=== PATIENT | female | born 1980 | race Caucasian/White ===

== ENCOUNTER 2023-11-11 15:43 | Inpatient (IN) ==
[2023-11-11 16:23] LABS: Hematocrit (blood only) 23.7 % (37.0-47.0); Hemoglobin 7.8 g/dl (12.0-16.0); Mean Corpuscular Hemoglobin 30.5 pg (25.0-34.0); Mean Corpuscular Hgb Conc 32.9 g/dL (32.0-36.0); Mean Corpuscular Volume 92.6 fL (80.0-100.0); Mean Platelet Volume 12.2 fL (9.4-12.4); Platelet Count 5 K/uL (130-400); RDW Coefficient of Variation 13.4 % (11.5-14.5); RDW Standard Deviation 44.7 fL (36.4-46.3); Red Blood Count 2.56 M/uL (4.20-5.40); White Blood Count 10.07 K/ul (4.8-10.8)
[2023-11-11] MEDS ORDERED: SODIUM CHLORIDE 0.9% 250 ML IV PRN (16:25)
[2023-11-11 16:33] LABS: Albumin Globulin Ratio 1.2 (0.9-2); Albumin Level 3.8 gm/dl (3.4-5.0); Basophils # (auto) 0.07 K/uL (0.00-0.20); Basophils % (auto) 0.7 %; Bilirubin,Total 0.5 mg/dl (0.2-1.0); Calcium 8.9 mg/dl (8.6-10.3); Creatinine Clr Calc Pharmacy 48.5 ml/min; Eosinophils # (auto) 0.36 K/uL (0.00-0.50); Eosinophils % (auto) 3.6 %; Est GFR (Non-African American) 37.1 ml/min; Globulin 3.3 gm/dl (2.5-4.0); Immature Granulocytes # (auto) 0.06 K/uL (0.01-0.20); Immature Granulocytes % (auto) 0.6 %; Lymphocytes # (auto) 2.12 K/uL (1.20-3.40); Lymphocytes % (auto) 21.1 %; Magnesium 1.6 mg/dl (1.7-2.4); Monocytes # (auto) 0.47 K/uL (0.11-0.59); Monocytes % (auto) 4.7 %; Neutrophils # (auto) 6.99 K/uL (1.40-6.50); Neutrophils % (auto) 69.3 %; Platelet Estimate Signific. Decreased (Normal); Potassium 3.8 mmol/L (3.5-5.1); Total Protein 7.1 gm/dl (6.0-8.3)
[2023-11-11 16:42] LABS: Prothrombin Time 10.9 Seconds (9.0-12.0)
[2023-11-11] MEDS: SODIUM CHLORIDE 0.9% 500 ML IV ONE (16:57)
[2023-11-11] MEDS: MAGNESIUM SULFATE / D5W 1 GM/100 ML BAG IV SCH (16:57)
[2023-11-11] MEDS ORDERED: methylPREDNISolone 10 mg/mL (For Ped Dose < 7mg) IV STA (17:05)
[2023-11-11 17:19] LABS: Reticulocyte % 6.49 % (0.50-2.00)
[2023-11-11] MEDS: methylPREDNISolone 1,000 MG in DEXTROSE 5% 250 ML IV SCH (18:15)
--- NOTE | 2023-11-11 18:40 | History & Physical Report ---
Date of Service November 11, 2023 Assessment & Plan (1) Acute ITP: Plan: Situation seems most consistent with ITP. Possibly precipitated by preceding viral illness. No new meds preceding (is on the Medroxyprogesteronbut given her history this clearly was started after her platelets had dropped given the excess vaginal bleeding). Other than her period related bleeding, no active bleeding and she is hemodynamically stable - pulsed Solu-Medrol 1000 mg daily - IVIG - follow closely, consult hematology (2) Symptomatic anemia: Plan: due to vaginal bleeding which was precipitated by having her period with ITP hemodynamically stable, no indications for transfusion. Will type and screen to be safe. Anticipate that once the bleeding stopped hematopoiesis will correct the anemia, at the same time, check a ferritin to ensure that she has enough iron stores (and replace iron if she is low) (3) Abnormal uterine and vaginal bleeding, unspecified: Plan: seems to have been normal period bleeding heavily accentuated by thrombocytopenia. ER had ordered platelets given the bleeding, but as the patient I discussed this she would prefer to hold off on platelet transfusion, and this certainly seems reasonable given how transient platelet effect often is in ITP, as well as the fact that she is hemodynamically stable and is likely the bleeding will stop soon (seems to maybe be slightly slowing with the Medroxyprogesteronand this has just been started yesterday, and with the steroids and IVIG I anticipate her platelets to start to rise soon)obviously follow closely and should her situation worsen then we may need to reconsider, but does not appear to be necessary at this time. (4) Kidney transplant recipient: Plan: Continue her chronic immune suppressants; creatinine is identical to what we have on record from about 6 months ago (5) Hypertension: Plan: continue home medications, should her blood pressures get at all soft, obviously would hold her antihypertensives, but this is not the case at this time (6) DVT prophylaxis: Plan: ambulation (7) Discharge planning issues: Plan: admit to medical, [facility], full code, came from homeonce she has better platelet counts, anticipate discharge to home indepe ndently. History of Present Illness Chief Complaint: Sent in for abnormal labs Primary Care Provider: Geri Elder DO patient is a very pleasant 43-year-old female who had routine labs done as part of her renal transplant follow-up, she was planning on going to the [facility] this evening, and instead ended up in the ER when her transplant applied biology professor called her and told her that her platelets were 5. She notes that over the last week or so she has had a minor degree of easier bruising. She does have her period and notes that it is excessively heavy this week. She had actually called gynecology about this and yesterday started medroxyprogesterone 10 mg 3 times dailyand while it is a little bit hard to tell, thinks that maybe the bleeding is starting to slow. She also notes feeling more fatigued and maybe a mild degree of more shortness of breath with exertion in the last few dayswhich she assumed was related to period blood loss. As we discussed her situation, it also sounds like she had a fairly nasty viral gastroenteritis maybe 2 weeks ago give or take. Otherwise she is feeling well. She has no resting complaints. Does not feel dizzy/weak/lightheaded. Allergies Allergy/AdvReac Type Severity Reaction Status Date / Time oxycodone AdvReac itching Verified 04/27/23 10:06 Penicillins AdvReac swelling Verified 04/27/23 10:06 of face/lips/tongue Home Medications Medication Instructions Recorded Confirmed Type sulfamethoxazole 400 1 tab PO 3XWK 10/01/19 11/11/23 History mg-trimethoprim 80 mg tablet (Bactrim) escitalopram oxalate 10 mg tablet 10 mg PO DAILY 08/29/22 11/11/23 History (Lexapro) bisoprolol fumarate 10 mg tablet 10 mg PO DAILY #90 tabs 11/02/22 11/11/23 Rx chlorthalidone 25 mg tablet 25 mg PO DAILY #90 tabs 05/08/23 11/11/23 Rx medroxyprogesterone 10 mg tablet 10 mg PO TID 10 days #30 tabs 11/10/23 11/11/23 Rx (Provera) tacrolimus 5 mg capsule, 10 mg PO DAILY 11/11/23 11/11/23 History immediate-release Past Med/Surg History Problem List Discharge planning issues DVT prophylaxis Symptomatic anemia Acute ITP Abnormal uterine and vaginal bleeding, unspecified Loose stools Hemorrhoids GERD (gastroesophageal reflux disease) Immunosuppressed status Recurrent UTI Kidney transplant recipient Hypertension Medical History COVID ESRD (end stage renal disease) IgA nephropathy Surgical History H/O dilation and curettage x2 Peritoneal dialysis catheter fitting or adjustment Arteriovenous fistula left BC, thrombosed Family History Mother Thyroid disease Sister Thyroid disease Father Coronary heart disease Grandmother (Paternal) Breast cancer Grandfather (Paternal) Dementia Grandmother (Maternal) Lung cancer Other Hypertension Denies family history of Ovarian cancer Colorectal cancer Uterine cancer Social History Smoking Status: Never smoker Do You Dip or Chew Tobacco: No; Hx Alcohol Use: Yes Hx Substance Use: No Preferred Language: Icelandic Current Living Situation: Spouse Current Living Situation Comment: , 5 adopted children current occupational status: employed current occupation: [employer] Feels Safe at Home: Yes Review of Systems Review of Systems: All systems reviewed & are unremarkable except as noted in HPI & below Physical Exam Physical Exam: General she is awake alert oriented pleasant and in no distress. HEENT normocephalic atraumatic mucous membranes moist. Cardio is regular without rubs murmurs gallops. Lungs clear to auscultation bilaterally no rales rhonchi or wheezes good effort. Extremities are without cyanosis or clubbing. Skin shows a few scattered bruises, and a questionable petechia or 2although the patient believes these are red spots that have been there for quite a while. Neuro shows no focal deficits. Mental status intact, good judgment and insight. Results & Data Results & Data Vital Signs (Past 12 Hours) Vital Signs Temp Pulse Resp BP Pulse Ox O2 Del Method 11/11/23 17:30 130/74 11/11/23 17:30 130/74 11/11/23 17:06 58 L 14 150/81 H 97 Room Air 11/11/23 16:55 153/80 H 11/11/23 16:36 63 16 11/11/23 16:07 57 L 11/11/23 16:06 58 L 18 100 11/11/23 15:49 97.7 F 64 17 124/79 98 Room Air Code Status & VTE Plan VTE Prophylaxis Plan VTE Prophylaxis will be ordered: No Reason for no VTE drug order: Contraindicated PG Care Time/CCT Total # of Minutes Spent Total Time Spent with Patient: Total time spent is greater than 50% in coordination of care (as documented) at patient's floor/unit and/or counseling patient: Coding Level of Care Code 63122 INT INP/OBS CARE 3/75MIN Diagnoses Acute ITP D69.3 Symptomatic anemia D64.9 Abnormal uterine and vaginal bleeding, unspecified N93.9 Kidney transplant recipient Z94.0 Hypertension I10 DVT prophylaxis Z29.9 Discharge planning issues Z75.8
[2023-11-11] MEDS: Octagam 10% IVIG 10 gram bottle IV SCH (18:49)
[2023-11-11 19:06] LABS: Ferritin 54.1 ng/ml (8-388)
[2023-11-11 20:00] LABS: Adenovirus PCR Not Detected (NotDetected); Bordetella parapertussis PCR Not Detected (NotDetected); Bordetella pertussis PCR Not Detected (NotDetected); Chlamydia pneumoniae PCR Not Detected (NotDetected); Coronavirus 229E PCR Not Detected (NotDetected); Coronavirus CoV-2 (COVID19)PCR Not Detected (NotDetected); Coronavirus HKU1 PCR Not Detected (NotDetected); Coronavirus NL63 PCR Not Detected (NotDetected); Coronavirus OC43PCR Not Detected (NotDetected); Human Metapneumovirus PCR Not Detected (NotDetected); Influenza A PCR Not Detected (NotDetected); Influenza B PCR Not Detected (NotDetected); Mycoplasma pneumoniae PCR Not Detected (NotDetected); Parainfluenza Virus 1 PCR Not Detected (NotDetected); Parainfluenza Virus 2 PCR Not Detected (NotDetected); Parainfluenza Virus 3 PCR Not Detected (NotDetected); Parainfluenza Virus 4 PCR Not Detected (NotDetected); Respiratory Syncytial VirusPCR Not Detected (NotDetected); Rhinovirus/Enterovirus PCR DETECTED (NotDetected)
[2023-11-11] MEDS ORDERED: POLYETHYLENE (MIRALAX) 17 GM PACK PO PRN (21:01)
[2023-11-11] MEDS ORDERED: MAGNESIUM HYDROXIDE SUSP 30 ML UDC PO PRN (21:01)
[2023-11-11] MEDS ORDERED: ALUMINUM/MAGNESIUM SUSP 30 ML UDC PO PRN (21:01)
[2023-11-11] MEDS: Octagam 10% IVIG 20 gram bottle IV SCH (21:02)
[2023-11-11] MEDS: medroxyPROGESTERone ACETATE 10 MG TAB PO SCH (22:42)
--- NOTE | 2023-11-11 23:32 | Emergency Department Note ---
Impression & Plan Thrombocytopenia, Status post kidney transplant ED Provider Note CHIEF COMPLAINT: abnormal labs, history of kidney transplant HISTORY OF PRESENT ILLNESS: This 43-year-old female patient with history of remote renal transplant, dysfunctional uterine bleeding, GERD, hypertension presents emergency department with complaints of abnormal lab work. patient states she had routine laboratory work done through her transplant team and was notified today that she has a critical platelet count. She is not aware of the levels. She has never had this problem in the past. Patient states she has been having some increased uterine bleeding. Patient was placed on progesterone by her TEST ENGINEERING TECHNICIAN this last week. She has been feeling weak and dizzy. She denies chance of . REVIEW OF SYSTEMS: A review of systems was performed with positives and pertinent negatives listed in the history of present illness. 10 systems were reviewed and are otherwise negative. ALLERGIES: see below MEDICATIONS: see below PMH: see below SOCIAL HISTORY: see below DDx: Thrombocytopenia, medication effect, ITP, hemolysis, dysfunctional uterine bleeding, renal failure among others. PHYSICAL EXAM: Vital signs reviewed. General: Well-appearing 43-year-old female, in no significant distress. HEENT: No scleral icterus, PERRLA, neck supple. moist mucous membranes Cardiovascular: Regular rate and rhythm, no extra sounds. Pulmonary: Clear to auscultation bilaterally, normal work of breathing. Abdomen: Soft, nontender, nondistended, positive bowel sounds. Musculoskeletal: Atraumatic, no peripheral edema. Neurologic: Patient awake alert and oriented x 3, speech is clear Skin: Warm, dry, no rash EMERGENCY DEPARTMENT COURSE/MDM: This patient was evaluated and appeared to be in no significant distress. IV access was obtained and laboratory work was drawn. Patient's platelet count is noted to be 5 with a hemoglobin of 7.8. Patient has normal WBC. I did contact Dr. Loco from the transplant team at [facility] who recommended consultation with hematology. He was advised of the patient's lab work. Dr. Jean of heme-onc recommends 1 g of IV Solu-Medrol, IVIG and admission. Additional laboratory work was ordered including reticulocyte count, haptoglobin, thin smear, LDH and Luiz test. Patient was consented for blood transfusion as platelets are recommended due to her bleeding. Platelets were ordered. Consultation with the hospitalist service was made and Dr. Gipson has evaluated the patient for admission. Patient is aware of the plan and agrees. MONITORING: An order for cardiac monitoring was placed and the patient is noted to be in a sinus bradycardia 58 beats per minute. EKG: to my interpretation reveals a sinus bradycardia 58 bpm, normal ST segments. QTc of 408. No PVC, no PAC. DISPOSITION: admission I have personally spent greater than 35 minutes of critical care time in the direct management of this patient. This includes bedside care, interpretation of diagnostic studies, and testing, discussion with consultants, patient, and family members, and other required patient management activities. This 35 minutes is in excess of all separately billable procedures. Past Med/Surg History Problem List (Updated 11/12/23 @ 01:04 by Danita Rodriguez MD) Status post kidney transplant (Acute) Thrombocytopenia (Acute) Discharge planning issues DVT prophylaxis Symptomatic anemia Acute ITP Abnormal uterine and vaginal bleeding, unspecified Loose stools Hemorrhoids GERD (gastroesophageal reflux disease) Immunosuppressed status Recurrent UTI Kidney transplant recipient Hypertension Medical History COVID ESRD (end stage renal disease) IgA nephropathy Surgical History H/O dilation and curettage x2 Peritoneal dialysis catheter fitting or adjustment Arteriovenous fistula left BC, thrombosed Family History Mother Thyroid disease Sister Thyroid disease Father Coronary heart disease Grandmother (Paternal) Breast cancer Grandfather (Paternal) Dementia Grandmother (Maternal) Lung cancer Other Hypertension Denies family history of Ovarian cancer Colorectal cancer Uterine cancer Social History Smoking Status: Never smoker Do You Dip or Chew Tobacco: No; Hx Alcohol Use: No Hx Substance Use: No Preferred Language: Ecuadorean [employer] Required: No Beliefs That Will Affect Care: None Current Living Situation: Spouse Current Living Situation Comment: , 5 adopted children current occupational status: employed current occupation: [employer] Feels Safe at Home: Yes Allergies Allergies Allergy/AdvReac Type Severity Reaction Status Date / Time oxycodone AdvReac itching Verified 04/27/23 10:06 Penicillins AdvReac swelling Verified 04/27/23 10:06 of face/lips/tongue Home Meds Home Medications Medication Instructions Recorded Confirmed sulfamethoxazole 400 1 tab PO 3XWK 10/01/19 11/11/23 mg-trimethoprim 80 mg tablet (Bactrim) escitalopram oxalate 10 mg tablet 10 mg PO DAILY 08/29/22 11/11/23 (Lexapro) tacrolimus 5 mg capsule, 10 mg PO DAILY 11/11/23 11/11/23 immediate-release Previous Rx's Medication Instructions Recorded bisoprolol fumarate 10 mg tablet 10 mg PO DAILY #90 tabs 11/02/22 chlorthalidone 25 mg tablet 25 mg PO DAILY #90 tabs 05/08/23 medroxyprogesterone 10 mg tablet 10 mg PO TID 10 days #30 tabs 11/10/23 (Provera) Results & Data (ED) Vital Signs Vital Signs - 24 hr 11/11/23 15:49 11/11/23 16:06 11/11/23 16:07 Temperature 36.5 C Temperature Source Skin Pulse Rate 64 58 L 57 L Pulse Rate from SpO2 Sensor 58 L Respiratory Rate 17 18 Respiratory Effort / Characteristics Non-Labored Spontaneous Respiratory Depth Normal Respiratory Pattern Regular Blood Pressure 124/79 Blood Pressure Mean 94 Pulse Oximetry 98 100 Oxygen Delivery Method Room Air Sepsis Recent Fever Within 48 Hours No Sepsis New/Unexplained Change in Mental Status No Sepsis Action Taken by Nursing No Action Required 11/11/23 16:36 11/11/23 16:55 11/11/23 17:06 Temperature Temperature Source Pulse Rate 63 58 L Pulse Rate from SpO2 Sensor Respiratory Rate 16 14 Respiratory Effort / Characteristics Respiratory Depth Respiratory Pattern Blood Pressure 153/80 H 150/81 H Blood Pressure Mean 107 104 Pulse Oximetry 97 Oxygen Delivery Method Room Air Sepsis Recent Fever Within 48 Hours Sepsis New/Unexplained Change in Mental Status Sepsis Action Taken by Nursing 11/11/23 17:30 11/11/23 17:30 Temperature Temperature Source Pulse Rate Pulse Rate from SpO2 Sensor Respiratory Rate Respiratory Effort / Characteristics Respiratory Depth Respiratory Pattern Blood Pressure 130/74 130/74 Blood Pressure Mean 82 82 Pulse Oximetry Oxygen Delivery Method Sepsis Recent Fever Within 48 Hours Sepsis New/Unexplained Change in Mental Status Sepsis Action Taken by [facility] Medications Current Medication List: was personally reviewed by me Laboratory Data Attestation: I reviewed the patient's lab results. 11/11/23 16:02 11/11/23 16:02 Lab Results 09/28/24 09/28/24 09/28/24 Range/Units 16:02 16:02 16:02 WBC 10.07 (4.8-10.8) K/ul RBC 2.56 L (4.20-5.40) M/uL Hgb 7.8 L (12.0-16.0) g/dl Hct 23.7 L (37.0-47.0) % MCV 92.6 (80.0-100.0) fL MCH 30.5 (25.0-34.0) pg MCHC 32.9 (32.0-36.0) g/dL RDW Std Deviation 44.7 (36.4-46.3) fL RDW Coeff of Desire 13.4 (11.5-14.5) % Plt Count 5 L* (130-400) K/uL MPV 12.2 (9.4-12.4) fL Immature Gran % (Auto) 0.6 % Neut % (Auto) 69.3 % Lymph % (Auto) 21.1 % [place] % (Auto) 4.7 % Eos % (Auto) 3.6 % Baso % (Auto) 0.7 % Reticulocyte % (Auto) 6.49 H (0.50-2.00) % Neut # (Auto) 6.99 H (1.40-6.50) K/uL Lymph # (Auto) 2.12 (1.20-3.40) K/uL [place] # (Auto) 0.47 (0.11-0.59) K/uL Eos # (Auto) 0.36 (0.00-0.50) K/uL Baso # (Auto) 0.07 (0.00-0.20) K/uL Reticulocyte # 0.160 H (0.020-0.100) 10^6/uL Immature Gran # (Auto) 0.06 (0.01-0.20) K/uL Platelet Estimate Signific. Decreased L (Normal) PT 10.9 (9.0-12.0) Seconds INR 1.0 (0.9-1.1) Sodium 138 (136-145) mmol/L Potassium 3.8 (3.5-5.1) mmol/L Chloride 106 (98-107) mmol/L Carbon Dioxide 26 (21-32) mmol/L Anion Gap 6 (3-11) BUN 30 H (6-23) mg/dl Creatinine 1.67 H (0.6-1.2) mg/dl Est Cr Clr Drug Dosing 48.5 ml/min Est GFR ( Amer) 43.0 ml/min Est GFR (Non-Af Amer) 37.1 ml/min BUN/Creatinine Ratio 18.0 (10-20) Glucose 59 L (70-99(Fasting)) mg/dl Calcium 8.9 (8.6-10.3) mg/dl Magnesium 1.6 L (1.7-2.4) mg/dl Ferritin 54.1 (8-388) ng/ml Total Bilirubin 0.5 (0.2-1.0) mg/dl AST 11 L (13-39) U/L ALT 6 L (7-52) U/L Alkaline Phosphatase 47 (34-104) U/L Lactate Dehydrogenase 143 (86-244) U/L Total Protein 7.1 (6.0-8.3) gm/dl Albumin 3.8 (3.4-5.0) gm/dl Globulin 3.3 (2.5-4.0) gm/dl Albumin/Globulin Ratio 1.2 (0.9-2) Blood Type B Negative Blood Type Recheck Antibody Screen POSITIVE A Direct Antiglob Test Positive A Cancelled (Negative) PHILLIP (IgG-AHG) 3+ A Cancelled (Negative) PHILLIP, Polyspecific 3+ A (Negative) PHILLIP C3b, C3d 5 Min (Negative) 11/11/23 11/11/23 11/11/23 Range/Units 16:02 16:02 18:22 WBC (4.8-10.8) K/ul RBC (4.20-5.40) M/uL Hgb (12.0-16.0) g/dl Hct (37.0-47.0) % MCV (80.0-100.0) fL MCH (25.0-34.0) pg MCHC (32.0-36.0) g/dL RDW Std Deviation (36.4-46.3) fL RDW Coeff of Desire (11.5-14.5) % Plt Count (130-400) K/uL MPV (9.4-12.4) fL Immature Gran % (Auto) % Neut % (Auto) % Lymph % (Auto) % [place] % (Auto) % Eos % (Auto) % Baso % (Auto) % Reticulocyte % (Auto) (0.50-2.00) % Neut # (Auto) (1.40-6.50) K/uL Lymph # (Auto) (1.20-3.40) K/uL [place] # (Auto) (0.11-0.59) K/uL Eos # (Auto) (0.00-0.50) K/uL Baso # (Auto) (0.00-0.20) K/uL Reticulocyte # (0.020-0.100) 10^6/uL Immature Gran # (Auto) (0.01-0.20) K/uL Platelet Estimate (Normal) PT (9.0-12.0) Seconds INR (0.9-1.1) Sodium (136-145) mmol/L Potassium (3.5-5.1) mmol/L Chloride (98-107) mmol/L Carbon Dioxide (21-32) mmol/L Anion Gap (3-11) BUN (6-23) mg/dl Creatinine (0.6-1.2) mg/dl Est Cr Clr Drug Dosing ml/min Est GFR ( Amer) ml/min Est GFR (Non-Af Amer) ml/min BUN/Creatinine Ratio (10-20) Glucose (70-99(Fasting)) mg/dl Calcium (8.6-10.3) mg/dl Magnesium (1.7-2.4) mg/dl Ferritin (8-388) ng/ml Total Bilirubin (0.2-1.0) mg/dl AST (13-39) U/L ALT (7-52) U/L Alkaline Phosphatase (34-104) U/L Lactate Dehydrogenase (86-244) U/L Total Protein (6.0-8.3) gm/dl Albumin (3.4-5.0) gm/dl Globulin (2.5-4.0) gm/dl Albumin/Globulin Ratio (0.9-2) Blood Type Blood Type Recheck B Negative Antibody Screen Direct Antiglob Test (Negative) PHILLIP (IgG-AHG) (Negative) PHILLIP, Polyspecific Cancelled (Negative) PHILLIP C3b, C3d 5 Min Neg Cancelled (Negative) Administered Medications Immune Globulin (Octagam 10%) 200 mls @ 56.82 mls/hr IV TODAY@1730,1800,1830 [facility]; Protocol Stop: 11/12/23 22:02 Last Titration: 11/12/23 00:28 Dose: Infused Documented By: W Admin: 11/11/23 23:32 Dose: 5.02 mg/kg/min, 285 mls/hr Documented By: Titration: 11/11/23 23:32 Dose: Infused Documented By: Admin: 11/11/23 22:41 Dose: 1 mg/kg/min, 56.8 mls/hr Documented By: W Titration: 11/11/23 22:41 Dose: Infused Documented By: Admin: 11/11/23 21:02 Dose: 1 mg/kg/min, 56.8 mls/hr Documented By: ION Immune Globulin (Octagam 10%) 100 mls @ 56.82 mls/hr IV TODAY@1715 [facility]; Protocol Stop: 11/12/23 19:01 Last Titration: 11/11/23 20:40 Dose: Infused Documented By: Admin: 11/11/23 18:49 Dose: 1 mg/kg/min, 56.8 mls/hr Documented By: CARINE Medroxyprogesterone Acetate (Medroxyprogesterone Acetate 10 Mg Tab) 10 mg PO TID [facility] Stop: 11/20/23 21:00 Last Admin: 11/11/23 22:42 Dose: 10 mg Documented By: ION Discontinued Medications Magnesium Sulfate/Dextrose (Magnesium Sulfate / D5w) 1 gm in 100 mls @ 200 mls/hr IV Q30M MICHELLE Stop: 11/11/23 17:41 Last Infusion: 11/11/23 18:15 Dose: Infused Documented By: Admin: 11/11/23 17:30 Dose: 200 mls/hr Documented By: Infusion: 11/11/23 17:30 Dose: Infused Documented By: Admin: 11/11/23 16:57 Dose: 200 mls/hr Documented By: CARINE Sodium Chloride (Nss) 500 mls @ 999 mls/hr IV .Q31M ONE Stop: 11/11/23 17:14 Last Infusion: 11/11/23 17:30 Dose: Infused Documented By: Admin: 11/11/23 16:57 Dose: 999 mls/hr Documented By: CARINE Methylprednisolone 1,000 mg/ (Dextrose) 266 mls @ 266 mls/hr IV TODAY@1730 [facility] Stop: 12/11/23 17:29 Last Infusion: 11/11/23 19:47 Dose: Infused Documented By: Admin: 11/11/23 18:15 Dose: 266 mls/hr Documented By: CARINE Discharge Plan Visit Data Chief Complaint: Abnormal Labs/Diagnostic Testing Stated Complaint: KINDEY TRANSPLANT PATIENT, ABN LABS, BLEEDING/VAG ED Provider: Danita Rodriguez Discharge Problem: Thrombocytopenia, Status post kidney transplant Patient Disposition: Admitted As Inpatient Discharge Instructions Interventions: ED Discharge Assessment Last Done: 11/11/23 19:44
[2023-11-12 00:39] LABS: Appearance Urine Clear (Clear); Bacteria Urine Automated None Seen (None Seen); Bilirubin Urine Negative (Negative); Blood Urine 3+ (Negative); Cast Urine Automated 0-2 /lpf (0-2); Color Urine Yellow; Epithelial Cell Urine Auto 0-2 /hpf (0-2); Glucose Urine UA 3+ (Negative); Ketones Urine Negative (Negative); Leukocyte Esterase Urine Negative (Negative); Nitrite Urine Negative (Negative); Protein Urine Negative (Negative); RBC Urine Automated >20 /hpf (0-2); Specific Gravity Urine 1.017 (1.000-1.030); Urobilinogen Urine Negative (Negative); WBC Urine Automated 0-5 /hpf (0-5)
[2023-11-12 06:01] LABS: Hematocrit (blood only) 22.6 % (37.0-47.0); Hemoglobin 7.3 g/dl (12.0-16.0); Mean Corpuscular Hemoglobin 29.8 pg (25.0-34.0); Mean Corpuscular Hgb Conc 32.3 g/dL (32.0-36.0); Mean Corpuscular Volume 92.2 fL (80.0-100.0); Platelet Count 13 K/uL (130-400); RDW Coefficient of Variation 13.4 % (11.5-14.5); Red Blood Count 2.45 M/uL (4.20-5.40); White Blood Count 9.47 K/ul (4.8-10.8)
[2023-11-12 06:12] LABS: BUN Creatinine Ratio 16.4 (10-20); Calcium 8.8 mg/dl (8.6-10.3); Creatinine Clr Calc Pharmacy 48.6 ml/min; Est GFR (African American) 43.6 ml/min; Est GFR (Non-African American) 37.6 ml/min; Potassium 4.3 mmol/L (3.5-5.1)
[2023-11-12 06:21] LABS: Basophils # (auto) 0.01 K/uL (0.00-0.20); Basophils % (auto) 0.1 %; Immature Granulocytes # (auto) 0.16 K/uL (0.01-0.20); Immature Granulocytes % (auto) 1.7 %; Lymphocytes # (auto) 0.53 K/uL (1.20-3.40); Lymphocytes % (auto) 5.6 %; Monocytes # (auto) 0.05 K/uL (0.11-0.59); Monocytes % (auto) 0.5 %; Neutrophils # (auto) 8.72 K/uL (1.40-6.50); Neutrophils % (auto) 92.1 %; RBC Morphology Unremarkable
--- NOTE | 2023-11-12 07:25 | Hospitalist Progress Note ---
Date of Service November 12, 2023 Assessment & Plan (1) Acute ITP: Plan: - ITP consequence of viral illness and both exacerbated by and causing heavy menses. - Platelets improved from 5 to 13 - Hem/Onc recommend patient remain on IV steroids until Platelets are 30 or higher - Continue pulsed Solu-Medrol 1000 mg daily - IVIG completed (2) Symptomatic anemia: Plan: Due to vaginal bleeding which was precipitated by having her period with ITP - Hbg is 7.3 - Pt is asymptomatic - Ferritin is 54.1 - May need IV iron - Continue to monitor hemodynamics (3) Abnormal uterine and vaginal bleeding, unspecified: Plan: - Pt prefers to decline platelet transfusion - Remain hemodynamically stable - Menses is beginning to slow down - Continue Medroxyprogesterone 10mg PO TID - Continue am CBC (4) Kidney transplant recipient: Plan: - Continue her chronic immune suppressants - Creatinine is at baseline - Continue to monitor kidney function (5) Hypertension: Plan: -Continue home medications - If blood pressures decline, hold antihypertensives. (6) DVT prophylaxis: Plan: ambulation (7) Discharge planning issues: Plan: Admission and Anticipated Discharge Date Admission Date: November 11, 2023 Supervising Physician Co-Signing Physician Notes I personally examined the patient and verified all figueroa points of history and exam, discussed case, and agree with decision making with Dr Cooper feeling good, no new complaints. bleeding slowing a good deal. vitals noted nad heent nc at mmm breathing unlabored no accessory muscles good effort skin no rashes no pallor or icterus neuro no focal deficits ITP - improved some - day 2/3 methylpred today, day 2/2 IVIG. continue to follow. appreciate hematology assist vaginal bleeding/menorrhagia - due to menses with ITP. medroxyprogesterone + improved platelets --> bleeding slowing acute blood loss anemia / mild iron deficiency - due to above. some GOMEZ/fatigue, but no hemodynamic indication for transfusion. IV iron to assist in hematopoesis CKD s/p renal transplant - conitnue home meds, Cr stable overall. otherwise as above hopefully home soon Subjective Pt is a 43 yo female who presented with platelets at 5 after prolonged heavy menses. Pt currently denies feeling ill or unwell. She notes on bruise at left elbow. Menstrual flow is beginning to decline, menses has been on going and heavy since 11/04/23. Pt denies CP, SOB, dizziness/lightheadedness, nausea, vomiting, diarrhea, nu mbness/tingling, changes in vision or hearing, or muscle/joint pain. Pt denies fevers, chills or dysuria. Review of Systems Review of Systems: As per HPI Physical Exam Constitutional: WD/WN, vitals as above Respiratory: normal respiratory effort, lungs clear to auscultation Cardiovascular: RRR, no murmur, no edema Gastrointestinal (Abdomen): normal bowel sounds, soft, nontender, no hepatosplenomegaly Skin: no rashes, warm and dry minor ecchymosis at left elbow Neurologic: PERRL, EOMI, accommodation nl, no face palsy, no dysarthria Psychiatric: A+Ox3, euthymic affect Results & Data Results & Data Vital Signs (Past 12 Hours) Vital Signs Temp Pulse Pulse Resp BP BP Pulse Ox 11/11/23 21:09 36.9 C 59 L 16 137/80 99 11/11/23 19:44 56 L 18 138/79 97 Resident Activity Tracking Resident Involvement: Resident Care Provided Care Provided: Adult Hospital Medicine
--- NOTE | 2023-11-12 07:41 | Oncology Consultation ---
Date of Consultation November 12, 2023 Assessment & Plan (1) Thrombocytopenia: (2) Acute ITP: (3) Symptomatic anemia: (4) Status post kidney transplant: Plan Very pleasant female s/p renal transplant in 2006 on chronic immunosuppression with tacrolimus who presented with severe thrombocytopenia and anemia. 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 -Her anemia is most likely due to menorrhagia with resultant iron deficiency given ferritin of only 54 in the setting of acute inflammation/viral infection. However, cannot completely rule out the possibility of her having Pino syndrome(immune thrombocytopenia and autoimmune hemolytic anemia) given positive PHILLIP. LDH and total bilirubin are within normal limits not consistent with hemolysis. Peripheral smear review and haptoglobin is pending.Positive PHILLIP may also be due to ITP. Will await peripheral smear review and haptoglobin levels to determine whether she could also have mild AIHA. -She is on chronic immunosuppression with tacrolimus which can cause ITP, TTP/HUS, pure red cell aplasia and hemolytic anemia. Based on labs she does not appear that she has TTP/HUS or pure red cell aplasia. Patient would prefer to remain on tacrolimus long-term. Explained to her that if ITP reoccurs in the future, would have to discuss with transplant team at [facility] to see if they would recommend switching to a different immunosuppressant. -Recommend checking B12 and folate levels as well as hepatitis panel today. -Recommend giving another dose of IVIG 1 g/kg today. -Continue with IV methylprednisolone 1 g daily times total of 3 days. She can be discharged home when platelet count is above 30,000 to follow-up with hematology in 1 to 2 weeks. History of Present Illness Reason for Consultation: Immune thrombocytopenia Attending Physician: Will Gipson DO History of Present Illness 43-year-old female with history of end-stage renal disease secondary to IgA nephropathy for which she is s/p renal transplant in 2006 at [facility] and has been on chronic immunosuppression with tacrolimus since then. She presented to the ER for thrombocytopenia after routine blood work obtained by transplant team at [facility] revealed severe thrombocytopenia platelet count of 5000. She states that she has had menorrhagia for about a week for which FILTER TANK OPERATOR recently started her on medroxyprogesterone on 11/10/2023. Labs obtained to ER significant for platelet count of 5000, hemoglobin 7.8, hematocrit 23.4, MCV 92.6. Reticulocyte count was 0.16 (160,000), total bilirubin was within normal limits at 0.5. Luiz test was positive with positive IgG PHILLIP and poly specific PHILLIP, C3b was negative. Renal function was stable with creatinine of 1.67. Peripheral smear review by pathologist pending. She received 1 g/kg of IVIG as well as 1 g of methylprednisolone yesterday. She declined platelet transfusion. Labs obtained today shows improvement in platelet count to 13,000. Respiratory panel revealed enterovirus infection She states that she has noticed improvement in menorrhagia since she was admitted. She states that she had a GI illness a couple of weeks ago with diarrhea and vomiting which resolved within less than 24 hours. Denies night sweats, fever, chills or lymphadenopathy. Allergies Allergy/AdvReac Type Severity Reaction Status Date / Time oxycodone AdvReac itching Verified 04/27/23 10:06 Penicillins AdvReac swelling Verified 04/27/23 10:06 of face/lips/tongue Home Medications Medication Instructions Recorded Confirmed Type sulfamethoxazole 400 1 tab PO 3XWK 10/01/19 11/11/23 History mg-trimethoprim 80 mg tablet (Bactrim) escitalopram oxalate 10 mg tablet 10 mg PO DAILY 08/29/22 11/11/23 History (Lexapro) bisoprolol fumarate 10 mg tablet 10 mg PO DAILY #90 tabs 11/02/22 11/11/23 Rx chlorthalidone 25 mg tablet 25 mg PO DAILY #90 tabs 05/08/23 11/11/23 Rx medroxyprogesterone 10 mg tablet 10 mg PO TID 10 days #30 tabs 11/10/23 11/11/23 Rx (Provera) tacrolimus 5 mg capsule, 10 mg PO DAILY 11/11/23 11/11/23 History immediate-release Patient History Medical History COVID ESRD (end stage renal disease) IgA nephropathy Surgical History H/O dilation and curettage x2 Peritoneal dialysis catheter fitting or adjustment Arteriovenous fistula left BC, thrombosed Family History Mother Thyroid disease Sister Thyroid disease Father Coronary heart disease Grandmother (Paternal) Breast cancer Grandfather (Paternal) Dementia Grandmother (Maternal) Lung cancer Other Hypertension Denies family history of Ovarian cancer Colorectal cancer Uterine cancer Social History Smoking Status: Never smoker Do You Dip or Chew Tobacco: No; Hx Alcohol Use: No Hx Substance Use: No Preferred Language: Ukrainian S3B Multi Sensor Operator Required: No Beliefs That Will Affect Care: None Current Living Situation: Spouse Current Living Situation Comment: , 5 adopted children current occupational status: employed current occupation: [employer] Feels Safe at Home: Yes Results & Data Vital Signs (Past 12 Hours) Vital Signs Temp Pulse Pulse Resp BP BP Pulse Ox 11/11/23 21:09 36.9 C 59 L 16 137/80 99 11/11/23 19:44 56 L 18 138/79 97
[2023-11-12] MEDS: TACROLIMUS 1 MG CAP PO SCH (08:36)
[2023-11-12] MEDS: BISOPROLOL FUMARATE 5 MG TAB PO SCH (08:37)
[2023-11-12] MEDS: CHLORTHALIDONE 25 MG TAB PO SCH (08:38)
[2023-11-12] MEDS: ESCITALOPRAM OXALATE 10 MG TAB PO SCH (08:38)
[2023-11-12] MEDS: methylPREDNISolone 1,000 MG in DEXTROSE 5% 250 ML IV SCH (08:49)
[2023-11-12] MEDS ORDERED: IMMUNE GLOBULIN (HUMAN) SOLN IV ONE (09:00)
[2023-11-12] MEDS ORDERED: methylPREDNISolone 1000 MG/16 ML IV SCH (09:00)
[2023-11-12 09:35] LABS: Folate (Folic Acid),Ser orPlas 8.79 ng/ml (>5.38)
[2023-11-12] MEDS: diphenhydrAMINE 50 MG/ML VIAL IV STA (12:36)
--- NOTE | 2023-11-12 15:26 | Billing Data ---
Date of Service November 12, 2023 Coding Level of Care Code 91919 SUB INP/OBS CARE MIN
[2023-11-12] MEDS: IRON SUCROSE 200 MG in 0.9 % SODIUM CHLORIDE 100 ML IV ONE (16:22)
--- NOTE | 2023-11-12 16:41 | Electrocardiogram Report ---
Test Reason : Blood Pressure : */* mmHG Vent. Rate : 58 BPM Atrial Rate : 58 BPM P-R Int : 160 ms QRS Dur : 82 ms QT Int : 416 ms P-R-T Axes : 19 14 42 degrees QTcB Int : 408 ms Sinus bradycardia Possible Anterior infarct , age undetermined Abnormal ECG No previous ECGs available Confirmed by Katherine Lomax (Ricky) on 11/12/2023 4:41:24 PM Referred By: REFERRED SELF Confirmed By: Katherine Lomax
[2023-11-13] MEDS: SULFA/TRIMETH 400/80MG TAB PO SCH (08:10)
[2023-11-13 08:24] LABS: Hematocrit (blood only) 20.7 % (37.0-47.0); Hemoglobin 6.5 g/dl (12.0-16.0); Mean Corpuscular Hgb Conc 31.4 g/dL (32.0-36.0); Mean Corpuscular Volume 95.4 fL (80.0-100.0); Mean Platelet Volume 11.6 fL (9.4-12.4); Platelet Count 78 K/uL (130-400); RDW Coefficient of Variation 14.4 % (11.5-14.5); RDW Standard Deviation 48.8 fL (36.4-46.3); Red Blood Count 2.17 M/uL (4.20-5.40); White Blood Count 16.21 K/ul (4.8-10.8)
[2023-11-13 08:28] LABS: BUN Creatinine Ratio 15.3 (10-20); Calcium 8.6 mg/dl (8.6-10.3); Creatinine Clr Calc Pharmacy 43.8 ml/min; Est GFR (African American) 38.5 ml/min; Est GFR (Non-African American) 33.2 ml/min
[2023-11-13] MEDS: IRON SUCROSE 200 MG in 0.9 % SODIUM CHLORIDE 100 ML IV SCH (08:33)
[2023-11-13 08:44] LABS: Basophils # (auto) 0.02 K/uL (0.00-0.20); Basophils % (auto) 0.1 %; Immature Granulocytes # (auto) 0.29 K/uL (0.01-0.20); Immature Granulocytes % (auto) 1.8 %; Lymphocytes # (auto) 0.53 K/uL (1.20-3.40); Lymphocytes % (auto) 3.3 %; Monocytes # (auto) 0.49 K/uL (0.11-0.59); Neutrophils # (auto) 14.88 K/uL (1.40-6.50); Neutrophils % (auto) 91.8 %; Polychromasia 1+
[2023-11-13] MEDS ORDERED: SODIUM CHLORIDE 0.9% 250 ML IV PRN (09:56)
[2023-11-13 10:59] LABS: Hep B Surface Ag with confirm Negative (Negative)
[2023-11-13 11:04] LABS: Hep C Ab Rflx HepCQuant RNA Negative (Negative)
--- NOTE | 2023-11-13 11:59 | Hospitalist Progress Note ---
Date of Service November 13, 2023 Assessment & Plan (1) Acute ITP: Plan: - ITP consequence of viral illness and both exacerbated by and causing heavy menses. - Platelets improved from 13 to 78 - Hem/Onc recommend IV steroids for 3d or until plt count 30; since pt staying o.n., continue pulsed Solu-Medrol 1000 mg for 3rd day - IVIG completed (2) Anemia: Plan: - acute blood loss anemia / mild iron deficiency 2/2 heavy vaginal bleeding + ITP - Hbg is 6.5, pt is asymptomatic - Given IV iron, agreeable to transfusion - Continue to monitor AM CBC (3) Menorrhagia: Plan: - Continue Medroxyprogesterone 10mg PO TID - Bleeding slowing w medroxyprogesterone + improved platelets (4) Kidney transplant recipient: Plan: - Continue her chronic immune suppressants - Creatinine is at baseline - Continue to monitor kidney function (5) Hypertension: Plan: - Continue home medications - If blood pressures decline, hold antihypertensives. Admission and Anticipated Discharge Date Admission Date: November 11, 2023 Supervising Physician Co-Signing Physician Notes Attending attestation Pt seen and examined in concert with Dr. Gallegos. In agreement with the documented findings as noted in the resident documentation with any exceptions or additions as noted here. Gradually improving vaginal bleeding but still persistent without worsening fatigue, lightheadedness or palpitations. On examination, S1/S2 nl RRR no MCG. CTAB. Abd NT/ND BS+ve Acute blood loss anemia - hgb of 6.5 - transfuse 2 units as bleeding ongoing, no other apparent source of bleeding appreciated ITP - platelet counts improving on present therapy. Continue IVIG and methylpred. Elevated creatinine in the setting of h/o renal transplant - continue to trend, likely to improve following transfusion. Resident team to contact nephrology outpatient for update. Else see resident documentation as noted. Subjective She is doing well today. Reports minimal vaginal bleeding. Denies dizziness/lightheadedness, CP, SOB, n/v/c/d, numbness/tingling, muscle or joint pain, dysuria. PLT improved, but Hgb down to 6.5. Discussed transfusion vs extended hospital stay, pt agreeable w receiving 2U. Waiting for blood products from [place]. Review of Systems 2 Review of Systems: As per HPI Physical Exam 2 Physical Exam: Constitutional: NAD, WD/WN HEENT: NCAT, PERRL, MMM CV: RRR, no m/r/g, S1/S2 normal, Resp: CTAB, symmetrical chest rise, breathing non-labored MSK: Full ROM, normal str, no gross deformities Skin: Warm, dry, pink, no rashes or lesions Psych: Mood-affect congruent. Speech pace and content normal. Results & Data Results & Data Vital Signs (Past 12 Hours) Vital Signs Temp Pulse Resp BP Pulse Ox O2 Del Method 11/13/23 07:44 Room Air 11/13/23 07:02 36.8 C 68 16 125/70 98 Room Air Laboratory Results 11/13/23 07:09 11/13/23 07:09
--- NOTE | 2023-11-13 13:29 | Progress Note ---
Date of Service November 13, 2023 Assessment & Plan (1) Thrombocytopenia: (2) Status post kidney transplant: Plan Agree with PRBC transfusion for hemoglobin of 6.5. Since peripheral smear review was negative for hemolysis, anemia likely due to menorrhagia. Can be discharged home on dexamethasone 40 mg daily x 4 days if hemoglobin is stable posttransfusion since platelet count is above 30,000. Bump in creatinine likely due to IVIG x 2 doses as expected. Since this is only mild continued observation. Would recommend rechecking CBC in about 1 week and follow-up with me in 1 to 2 weeks. Admission and Anticipated Discharge Date Admission Date: November 11, 2023 Subjective Doing better today, minimal vaginal bleeding. Labs show improvement in platelet counts to 78,000. Hemoglobin down to 6.5 with hematocrit of 20.7. Received IV Venofer yesterday and today. Awaiting PRBC from [place]. Results & Data Vital Signs (Past 12 Hours) Vital Signs Temp Pulse Resp BP Pulse Ox O2 Del Method 11/13/23 07:44 Room Air 11/13/23 07:02 36.8 C 68 16 125/70 98 Room Air
[2023-11-14 02:11] LABS: Hematocrit (blood only) 20.5 % (37.0-47.0); Hemoglobin 6.7 g/dl (12.0-16.0)
--- NOTE | 2023-11-14 07:37 | Hospitalist Progress Note ---
Date of Service November 14, 2023 Assessment & Plan (1) Acute ITP: Plan: - ITP consequence of viral illness and both exacerbated by and causing heavy menses. - Platelets improved from 13 to 78 - Hem/Onc recommend IV steroids for 3d or until plt count 30; since pt staying o.n., continue pulsed Solu-Medrol 1000 mg for 3rd day - IVIG completed (2) Anemia: Plan: - acute blood loss anemia / mild iron deficiency 2/2 heavy vaginal bleeding + ITP - Hbg is 6.5, pt is asymptomatic - Given IV iron, agreeable to transfusion - Continue to monitor AM CBC (3) Menorrhagia: Plan: - Continue Medroxyprogesterone 10mg PO TID - Bleeding slowing w medroxyprogesterone + improved platelets (4) Kidney transplant recipient: Plan: - Continue her chronic immune suppressants - Creatinine is at baseline - Continue to monitor kidney function (5) Hypertension: Plan: - Continue home medications - If blood pressures decline, hold antihypertensives. Admission and Anticipated Discharge Date Admission Date: November 11, 2023 Subjective She is doing well today. Reports minimal vaginal bleeding. Received 2U pRBC o.n. Denies dizziness/lightheadedness, CP, SOB, n/v/c/d, numbness/tingling, muscle or joint pain, dysuria. Review of Systems Review of Systems: As per HPI Physical Exam Physical Exam: Constitutional: NAD, WD/WN HEENT: NCAT, PERRL, MMM CV: RRR, no m/r/g, S1/S2 normal, Resp: CTAB, symmetrical chest rise, breathing non-labored MSK: Full ROM, normal str, no gross deformities Skin: Warm, dry, pink, no rashes or lesions Psych: Mood-affect congruent. Speech pace and content normal. Results & Data Results & Data Vital Signs (Past 12 Hours) Vital Signs Temp Pulse Pulse Resp BP BP Pulse Ox 11/14/23 07:32 36.7 C 57 L 14 136/75 96 11/14/23 06:54 36.7 C 49 L 16 176/84 H 96 11/14/23 06:54 36.7 C 49 L 16 176/84 H 96 11/14/23 06:24 36.5 C 50 L 16 158/85 H 97 11/14/23 06:09 36.7 C 51 L 16 145/82 H 98 11/14/23 05:53 36.8 C 50 L 16 151/87 H 97 11/14/23 05:50 36.8 C 50 L 16 151/87 H 97 11/14/23 05:32 36.7 C 53 L 16 133/73 98 11/14/23 04:53 36.7 C 51 L 16 151/83 H 97 11/14/23 03:53 36.7 C 54 L 16 169/94 H 97 11/14/23 03:23 36.8 C 49 L 16 154/88 H 98 11/14/23 03:08 36.6 C 58 L 16 157/83 H 98 11/14/23 02:52 36.7 C 57 L 16 152/77 H 99 11/14/23 02:33 36.7 C 57 L 16 152/77 H 99 11/13/23 19:53 36.7 C 57 L 16 160/84 H 97 O2 Del Method 11/14/23 07:32 Room Air 11/14/23 06:54 11/14/23 06:54 11/14/23 06:24 11/14/23 06:09 11/14/23 05:53 11/14/23 05:50 11/14/23 05:32 11/14/23 04:53 11/14/23 03:53 11/14/23 03:23 11/14/23 03:08 11/14/23 02:52 11/14/23 02:33 Room Air 11/13/23 19:53 Room Air
[2023-11-14 10:04] LABS: Hematocrit (blood only) 26.6 % (37.0-47.0); Hemoglobin 8.7 g/dl (12.0-16.0)
--- NOTE | 2023-11-14 10:06 | Discharge Summary ---
Date of Service November 14, 2023 Admission HPI Per Admitting Provider patient is a very pleasant 43-year-old female who had routine labs done as part of her renal transplant follow-up, she was planning on going [facility] this [facility], and instead ended up in the ER when her transplant pl sql developer called her and told her that her platelets were 5. She notes that over the last week or so she has had a minor degree of easier bruising. She does have her period and notes that it is excessively heavy this week. She had actually called gynecology about this and yesterday started medroxyprogesterone 10 mg 3 times dailyand while it is a little bit hard to tell, thinks that maybe the bleeding is starting to slow. She also notes feeling more fatigued and maybe a mild degree of more shortness of breath with exertion in the last few dayswhich she assumed was related to period blood loss. As we discussed her situation, it also sounds like she had a fairly nasty viral gastroenteritis maybe 2 weeks ago give or take. Otherwise she is feeling well. She has no resting complaints. Does not feel dizzy/weak/lightheaded. Admission Exam Per Admitting Provider General she is awake alert oriented pleasant and in no distress. HEENT normocephalic atraumatic mucous membranes moist. Cardio is regular without rubs murmurs gallops. Lungs clear to auscultation bilaterally no rales rhonchi or wheezes good effort. Extremities are without cyanosis or clubbing. Skin shows a few scattered bruises, and a questionable petechia or 2although the patient believes these are red spots that have been there for quite a while. Neuro shows no focal deficits. Mental status intact, good judgment and insight. Principal Diagnosis ITP Discharge Exam Constitutional: pleasant, NAD, AOx3 HEENT: NCAT, PERRL CV: RRR, no m/r/g, S1/S2 normal Resp: CTAB, symmetrical chest rise, breathing non-labored MSK: Full ROM, no gross deformities Skin: Warm, dry, pink, no petechiae/purpura Neuro: CN II-XII grossly intact, nl gait Psych: Mood-affect congruent. Speech pace and content normal. Discharge Data Allergies Allergy/AdvReac Type Severity Reaction Status Date / Time oxycodone AdvReac itching Verified 04/27/23 10:06 Penicillins AdvReac swelling Verified 04/27/23 10:06 of face/lips/tongue Consultations 11/11/23 17:29 ED Decision to Admit Stat 11/11/23 18:29 Consult Hematology Routine Ordered Studies 11/14/23 09:47 11/14/23 09:47 Hospital Course (1) Acute ITP: (2) Anemia: (3) Menorrhagia: (4) Kidney transplant recipient: Plan Acute ITP: - likely 2/2 viral illness and both exacerbated by and causing heavy menses. - Platelets improved from 13 to 78 - Completed 3 days pulsed Solu-Medrol & 2 days IVIG Anemia: - acute blood loss anemia & mild iron deficiency, 2/2 heavy vaginal bleeding + ITP - given 2U pRBCs overnight - Hbg improved to 8.7, pt is asymptomatic - f/u w hematology, Dr. Jean; repeated CBC 1wk after d/c Menorrhagia: - In the setting of ITP; pt has no h/o heavy bleeding - Bleeding improved w medroxyprogesterone + improved platelets - Finish medroxyprogesterone course, 10mg PO TID for 6 more days Kidney transplant recipient: - Continue chronic immune suppressants - Creatinine is 1.78 (baseline ~ 1.65); slight increase likely d/t anemia + IVIG - Follow-up with nephrology outpatient Total Time Total Time Spent Total Time Spent (In Minutes): See attending documentation Discharge Plan Discharge Items Patient Disposition: Home - Self-Care Reason For Visit: ITP Discharge Diagnosis: ITP, anemia 2/2 menorrhagia Activity: Per Instructions section Non-emergency contact: Primary Care Provider and Specialist Call non-emergency contact if: you have any medication questions and your symptoms worsen Follow-up/Referrals: Geri Elder DO [Primary Care Provider] - Diet: Regular Addtl Attending Provider Instructions: You were admitted to the hospital for low platelet count, which was diagnosed as Immune Thrombocytopenic Purpura (ITP). You were also found to be anemia, likely due to the heavy menstrual bleeding, which in turn was due to the ITP. You were given 3 days of IV steroids, 2 days of IV immunoglobulin, and a blood transfusion of 2 units. Your subsequent labs showed levels safe for discharge. Your creatinine had a slight increase during your hospitalization, which is likely because of the anemia + the IVIG. Follow up with your pl sql developer to recheck labs and ensure return to your baseline kidney function. Make a follow-up appointment with your PCP within the next week. It is very important that you follow up with them shortly after discharge from the hospital. Call heme/onc and make a follow up appointment with Dr. Jean. We are sending to your pharmacy a prescription for Dexamethasone 40 mg; take 1 tablet daily for 4 days. We are also sending the 10mg medroxyprogesterone started by your paint preparer. To finish your course, take 1 tablet 3x per day for 6 more days. You experienced some back pain/neck tension before discharge. For this, you can take ibuprofen 400mg every 4-6 hours as needed. We are also sending over a prescription for flexeril (cyclobenzaprine) extended-release 15mg; take 1 tablet daily as needed if pain not controlled by the NSAIDs. If your nausea persists even after the back pain is resolved, contact your PCP. If you have any questions or concerns, you can contact your PCP or call [phone] and ask to leave a message for Dr. Gallegos. Thank you for allowing us to participate in your care. Pending Studies at Discharge: No Stand-Alone Forms: [facility] BoardVitals, Work/School Release, Smoking Cessation Medications and DC Order Prescriptions: New dexamethasone 20 mg tablet 40 mg PO DAILY 4 Days Qty: 8 0RF cyclobenzaprine 15 mg capsule,extended release 24hr 15 mg PO DAILY Qty: 7 0RF Continued escitalopram oxalate [Lexapro] 10 mg tablet 10 mg PO DAILY bisoprolol fumarate 10 mg tablet 10 mg PO DAILY Qty: 90 3RF chlorthalidone 25 mg tablet 25 mg PO DAILY Qty: 90 3RF sulfamethoxazole-trimethoprim [Bactrim] 400-80 mg tablet 1 tab PO 3XWK tacrolimus 5 mg Capsule 10 mg PO DAILY medroxyprogesterone [Provera] 10 mg tablet 10 mg PO TID 6 Days Qty: 18 0RF Rx Instructions: TAKE FOR 10 DAYS...ORDERED 11/10/23 Discharge Orders: Discharge Order (Routine); Ordered 11/14/23 Ordered By: Juliette Gallegos Admission Data Admit Date/Time: 11/11/23 18:28 Attending Provider: Nilson Edwards Admit Provider: Will Gipson Primary Care Provider: Elder,Geri B. Other Providers: Laura Jean; Will Gipson Supervising Physician Co-Signing Physician Notes Attending attestation Pt seen and examined in concert with Dr. Gallegos. In agreement with the documented findings as noted in the resident documentation with any exceptions or additions as noted here. Resolved vaginal bleeding per patient with improvement in fatigue. On examination, S1/S2 nl RRR no MCG. CTAB. Abd NT/ND BS+ve Acute blood loss anemia s/p 2U PRBC - resolution of source bleeding and stable hgb post transfusion at 8.6. Would repeat H/H on follow up. Menorraghia - resolved - complete course of 5 days of medroxyprogesterone. ITP - platelet counts improved following IVIG and methylpred. Repeat CBC on follow up. Elevated creatinine in the setting of h/o renal transplant - improved following transfusion, likely secondary to IVIG and anemia. Continue to follow with transplant team and recheck BMP in the outpatient setting. Else see resident documentation as noted. Total attending physician time spent with this patient's care on the day of discharge: 40 minutes. Resident Activity Tracking Resident Involvement: Resident Care Provided Care Provided: Adult [facility]
[2023-11-14 10:15] LABS: BUN Creatinine Ratio 16.3 (10-20); Calcium 8.6 mg/dl (8.6-10.3); Creatinine Clr Calc Pharmacy 45.1 ml/min; Est GFR (African American) 39.8 ml/min; Est GFR (Non-African American) 34.3 ml/min; Potassium 3.8 mmol/L (3.5-5.1)
[2023-11-14] MEDS: ACETAMINOPHEN 325 MG TAB PO PRN (10:23)
[2023-11-14] MEDS: ONDANSETRON INJ 2 MG/ML 2 ML VIAL IV PRN (11:46)
[2023-11-14 11:58] LABS: Hepatitis A Antibody IgM NON-REACTIVE (NON-REACTIVE); Hepatitis B Core Antibody IgM NON-REACTIVE (NON-REACTIVE)
[2023-11-14 14:51] VITALS: BP 157/90; PULSE 54; RESP 16; TEMP 97.7; O2SAT 98
== END 2023-11-14 17:30 | disposition home or self-care (01) | DRG 813 ==
LOC: ED 15:43 → SUATTDRO 18:28 → 3E 18:28